=== PATIENT | female | born 1935 | race Hispanic/Latino ===

== ENCOUNTER 2017-08-03 08:01 | Emergency (ER) | payer MEDICARE, OTHER ==
[2017-08-03 08:31] VITALS: BP 114/52; TEMP 97.8; BMI 33.2
--- NOTE | 2017-08-03 08:40 | ED PDOC ---
Arrival/HPI - General Chief Complaint: Female Genitourinary Time Seen by Provider: 08/03/17 08:28 Historian: Patient - History of Present Illness Narrative History of Present Illness (Text): 08/03/17 08:40 81 year old female, with no significant past medical history, presents to the emergency department complaining of vaginal bleed since this morning. Patient denies any fevers, chills, chest pain, shortness of breath, abdominal pain, nausea, vomiting, diarrhea, back pain, neck pain, hematuria, headache, dizziness , or any other complaint. Time/Duration: 4-6 hours Symptom Onset: Sudden Symptom Course: Unchanged Activities at Onset: Light Context: Home Past Medical History - Provider Review Nursing Documentation Reviewed: Yes - Cardiac Hx Cardiac Disorders: Yes Hx Congestive Heart Failure: Yes Hx Hypertension: Yes Hx Pacemaker: Yes - Pulmonary Hx Lung Cancer: Yes - Neurological Hx Neurological Disorder: No - HEENT Hx HEENT Disorder: No - Renal Hx Renal Disorder: No - Endocrine/Metabolic Hx Hypothyroidism: Yes - Hematological/Oncological Hx Blood Transfusions: No Hx Blood Transfusion Reaction: No - Integumentary Hx Dermatological Disorder: No - Musculoskeletal/Rheumatological Hx Arthritis: Yes - Gastrointestinal Hx Gastrointestinal Disorders: No - Genitourinary/Gynecological Hx Reproductive Disorders: No - Psychiatric Hx Depression: No Hx Emotional Abuse: No Hx Physical Abuse: No Hx Substance Use: No - Surgical History Hx Cardiac Catheterization: Yes Hx Joint Replacement: Yes (b/l hip) - Anesthesia Hx Anesthesia Reactions: No Hx Malignant Hyperthermia: No - Suicidal Assessment Feels Threatened In Home Enviroment: No Family/Social History - Physician Review Nursing Documentation Reviewed: Yes Family/Social History: Unknown Family HX Smoking Status: Former Smoker Hx Alcohol Use: No Hx Substance Use: No Hx Substance Use Treatment: No Allergies/Home Meds Allergies/Adverse Reactions: Allergies No Known Allergies Allergy (Verified 08/03/17 08:26) Home Medications: Home Meds Medication Instructions Recorded Confirmed Ascorbic Acid/Vitamin B Comp [B 1 tab PO DAILY 06/08/14 06/13/14 Complex W/C] Celecoxib [celeBREX] 200 mg PO DAILY 06/08/14 06/13/14 Nebivolol HCl [Bystolic] 5 mg PO DAILY 06/08/14 06/13/14 Rosuvastatin Calcium [Crestor] 20 mg PO DAILY 06/08/14 06/13/14 Review of Systems - Review of Systems Constitutional: Normal Eyes: Normal ENT: Normal Respiratory: Normal. absent: SOB, Cough Cardiovascular: Normal. absent: Chest Pain Gastrointestinal: Normal. absent: Abdominal Pain, Diarrhea, Nausea, Vomiting Genitourinary Female: Vaginal Bleeding. absent: Dysuria, Frequency, Hematuria, Urine Output Changes Musculoskeletal: Normal. absent: Back Pain, Neck Pain Skin: Normal. absent: Rash Neurological: Normal. absent: Headache, Dizziness Endocrine: Normal Hemo/Lymphatic: Normal Psychiatric: Normal Physical Exam Vital Signs Reviewed: Yes Vital Signs Temp Pulse Resp BP Pulse Ox 08/03/17 08:28 97.8 F 60 18 114/52 L 97 Temperature: Afebrile Blood Pressure: Normal Pulse: Regular Respiratory Rate: Normal Appearance: Positive for: Well-Appearing, Non-Toxic, Comfortable Pain Distress: None Mental Status: Positive for: Alert and Oriented X 3 - Systems Exam Head: Present: Atraumatic, Normocephalic Pupils: Present: PERRL Extroacular Muscles: Present: EOMI Conjunctiva: Present: Normal Mouth: Present: Moist Mucous Membranes Neck: Present: Normal Range of Motion. No: Meningeal Signs, MIDLINE TENDERNESS , Paraspinal Tenderness Respiratory/Chest: Present: Clear to Auscultation, Good Air Exchange. No: Respiratory Distress, Accessory Muscle Use, Wheezes, Decreased Breath Sounds, Rales Cardiovascular: Present: Regular Rate and Rhythm, Normal S1, S2. No: Murmurs Abdomen: No: Tenderness, Distention, Peritoneal Signs Genitourinary/Pelvic Exam: Present: Vaginal Bleeding Back: Present: Normal Inspection. No: CVA Tenderness, Midline Tenderness, Paraspinal Tenderness Upper Extremity: Present: Normal Inspection. No: Cyanosis, Edema Lower Extremity: Present: Normal Inspection. No: Edema, CALF TENDERNESS Neurological: Present: GCS=15, CN II-XII Intact, Speech Normal Skin: Present: Warm, Dry, Normal Color. No: Rashes Psychiatric: Present: Alert, Oriented x 3, Normal Insight, Normal Concentration Medical Decision Making ED Course and Treatment: 08/03/17 08:51 Impression: 81 year old female presents to the emergency department complaining of vaginal bleeding since this morning. Plan: -- Labs -- US Transvaginal -- Reassess and disposition Progress Notes: 08/03/17 10:22 US Transvaginal reviewed, shows; UTERUS: Measures 8.3 x 4.1 x 3.5 cm. Anterior intramural fibroid 3.0 x 2.7 x 3.0 cm. No other discrete mass. ENDOMETRIUM: Measures 8 mm in diameter. Visualization limited due to the uterine fibroid. Nevertheless, 8 mm endometrium is distinctly abnormal in a postmenopausal woman. Further evaluation advised to exclude endometrial neoplasm. CERVIX: No cervical abnormality identified. RIGHT OVARY: Not visualized LEFT OVARY: Not visualized FREE FLUID: No significant free fluid noted. OTHER FINDINGS: None. IMPRESSION: 3 cm anterior intramural uterine fibroid. Abnormal thickened endometrium. Further evaluation advised to exclude endometrial neoplasm. . 08/03/17 10:35 Spoke to patient and patient's daughter about concern that she has endometrial cancer. She reports that she has a laborer stores, Dr. Lisa [phone] to follow-up with. Called patient's laborer [employer] who is moving today. Left message with answering service. Called patient's PMD Dr. Sabra Herring to make her aware of abnormal u/s. Left message with her office. Gave patient copy of ultrasound report. Patient and patient's daughter report understanding that this could be cancer and she needs further evaluation. No gynecology services available here. Hemodynamically stable and hgb at baseline. - Lab Interpretations Lab Results: 08/03/17 09:26 08/03/17 08:48 Lab Results 08/03/17 09:26: WBC 6.2 D, RBC 3.88, Hgb 10.2 L, Hct 32.2 L, MCV 83.0, MCH 26.3 , MCHC 31.7, RDW 16.0 H, Plt Count 189, MPV 12.0 H, Gran % 73.2 H, Lymph % (Auto ) 15.9 L, Charles % (Auto) 6.2 H, Eos % (Auto) 4.4, Baso % (Auto) 0.3, Gran # 4.50 , Lymph # (Auto) 1.0 L, Charles # (Auto) 0.4, Eos # (Auto) 0.3, Baso # (Auto) 0.02 08/03/17 08:48: Blood Type A POSITIVE, Antibody Screen Negative, BBK History Checked No verified bt 08/03/17 08:48: Sodium 142, Potassium 4.4, Chloride 110 H, Carbon Dioxide 24, Anion Gap 12, BUN 27 H, Creatinine 1.1, Est GFR ( Amer) 58, Est GFR (Non- Af Amer) 48, Random Glucose 104, Calcium 8.4, Total Bilirubin 0.3, AST 26, ALT 37, Alkaline Phosphatase 45, Total Protein 5.5 L, Albumin 3.2, Globulin 2.3, Albumin/Globulin Ratio 1.4 08/03/17 08:48: PT 12.0, INR 1.04, APTT 24.6 L - RAD Interpretation Radiology Orders: 08/03/17 08:38 TRANSVAGINAL [US] Stat - Scribe Statement The provider has reviewed the documentation as recorded by the Scribe Shiloh Garcia All medical record entries made by the Scribe were at my direction and personally dictated by me. I have reviewed the chart and agree that the record accurately reflects my personal performance of the history, physical exam, medical decision making, and the department course for this patient. I have also personally directed, reviewed, and agree with the discharge instructions and disposition. Disposition/Present on Arrival - Present on Arrival Any Indicators Present on Arrival: No History of DVT/PE: No History of Uncontrolled Diabetes: No Urinary Catheter: No History of Decub. Ulcer: No History Surgical Site Infection Following: None - Disposition Have Diagnosis and Disposition been Completed?: Yes Diagnosis: Anemia, Uterine fibroid, Thickened endometrium, Vaginal bleeding Disposition: HOME/ ROUTINE Disposition Time: 10:36 Patient Plan: Discharge Patient Problems: Current Active Problems Problem Status Onset Anemia Acute Uterine fibroid Acute Thickened endometrium Acute Vaginal bleeding Acute Condition: GOOD Additional Instructions: Your ultrasound is concerning for endometrial cancer. You need to follow-up with your [employer] within 2 days for further evaluation. Return to ED if condition worsens. Follow-up with PMD within 2 days Forms: [employer] (Eth[place]ian)
[2017-08-03 09:07] LABS: ALB/GLOB RATIO 1.4 (1.1-1.8); ALBUMIN 3.2 g/dL (3.0-4.8); CALCIUM 8.4 mg/dL (8.4-10.5)
[2017-08-03 09:16] LABS: INR 1.04 (0.93-1.08); PARTIAL THROMBOPLASTIN TIME 24.6 Seconds (25.1-36.5)
[2017-08-03 09:36] LABS: BASO # 0.02 K/mm3 (0.0-2.0); BASO % 0.3 % (0.0-3.0); EOS # 0.3 (0.0-0.7); EOS % 4.4 % (1.5-5.0); GRAN # 4.5 (1.4-6.5); GRAN % 73.2 % (50.0-68.0); HEMOGLOBIN 10.2 g/dL (12.0-16.0); LYMPH % 15.9 % (22.0-35.0); MEAN CORPUSCULAR HEMOGLOBIN 26.3 pg (25.0-35.0); MEAN CORPUSCULAR HGB CONC 31.7 g/dl (31.0-37.0); MONO # 0.4 (0.1-0.6); MONO % 6.2 % (1.0-6.0); RBC 3.88 10^6/uL (3.5-6.1); WHITE BLOOD COUNT 6.2 10^3/ul (4.5-11.0)
--- NOTE | 2017-08-03 10:17 | US ---
HISTORY: vaginal bleeding COMPARISON: None available. TECHNIQUE: Transabdominal and transvaginal FINDINGS: UTERUS: Measures 8.3 x 4.1 x 3.5 cm. Anterior intramural fibroid 3.0 x 2.7 x 3.0 cm. No other discrete mass. ENDOMETRIUM: Measures 8 mm in diameter. Visualization limited due to the uterine fibroid. Nevertheless, 8 mm endometrium is distinctly abnormal in a postmenopausal woman. Further evaluation advised to exclude endometrial neoplasm. CERVIX: No cervical abnormality identified. RIGHT OVARY: Not visualized LEFT OVARY: Not visualized FREE FLUID: No significant free fluid noted. OTHER FINDINGS: None. IMPRESSION: 3 cm anterior intramural uterine fibroid. Abnormal thickened endometrium. Further evaluation advised to exclude endometrial neoplasm. .
[2017-08-03 11:24] VITALS: PULSE 67
[2017-08-03 11:28] VITALS: RESP 18; O2SAT 98
== END 2017-08-03 11:28 | disposition home or self-care (01) ==
LOC: ED 08:01
DX: D25.1 Intramural leiomyoma of uterus (principal); D64.9 Anemia, unspecified; N93.9 Abnormal uterine and vaginal bleeding, unspecified; R93.8 Abnormal findings on diagnostic imaging of other specified body structures; Z87.891 Personal history of nicotine dependence; I10 Essential (primary) hypertension; I50.9 Heart failure, unspecified; E03.9 Hypothyroidism, unspecified

== ENCOUNTER 2017-11-06 09:35 | Inpatient (IN) | payer MEDICARE, OTHER ==
[2017-11-06 09:37] VITALS: BMI 33.0
--- NOTE | 2017-11-06 09:58 | ED PDOC ---
Arrival/HPI - General Historian: Patient <Geovanni Bronson A - Last Filed: 11/06/17 18:05> <Kris Garcia - Last Filed: 11/08/17 11:38> - General Chief Complaint: Shortness Of Breath Time Seen by Provider: 11/06/17 09:39 - History of Present Illness Narrative History of Present Illness (Text): 11/06/17 09:49 82yo female with pmhx of hypertension, hypothyroid, CAD s/p stents and pacemaker bib the EMS for 2days history of subjective fever, malaise, SOB. Denies cough, chest pain, nausea, vomiting, abdominal pain, sick contact, travel. The daughter states patient lives by herself and told her of the symptoms today. Patient did not take any medication for the pain. (Geovanni Bronson A) Past Medical History - Provider Review Nursing Documentation Reviewed: Yes - Reproductive Menopause: Yes - Cardiac Hx Cardiac Disorders: Yes Hx Congestive Heart Failure: Yes Hx Hypertension: Yes Hx Pacemaker: Yes - Pulmonary Hx Lung Cancer: Yes - Neurological Hx Neurological Disorder: No - HEENT Hx HEENT Disorder: No - Renal Hx Renal Disorder: No - Endocrine/Metabolic Hx Hypothyroidism: Yes - Hematological/Oncological Hx Blood Transfusions: No Hx Blood Transfusion Reaction: No - Integumentary Hx Dermatological Disorder: No - Musculoskeletal/Rheumatological Hx Arthritis: Yes - Gastrointestinal Hx Gastrointestinal Disorders: No - Genitourinary/Gynecological Hx Reproductive Disorders: No - Psychiatric Hx Depression: No Hx Emotional Abuse: No Hx Physical Abuse: No Hx Substance Use: No - Surgical History Hx Cardiac Catheterization: Yes Hx Joint Replacement: Yes (b/l hip) - Anesthesia Hx Anesthesia Reactions: No Hx Malignant Hyperthermia: No - Suicidal Assessment Feels Threatened In Home Enviroment: No <Geovanni Bronson A - Last Filed: 11/06/17 18:05> Family/Social History - Physician Review Nursing Documentation Reviewed: Yes Family/Social History: Unknown Family HX Smoking Status: Former Smoker Hx Alcohol Use: No Hx Substance Use: No Hx Substance Use Treatment: No <Geovanni Bronson A - Last Filed: 11/06/17 18:05> Allergies/Home Meds <Geovanni Bronson A - Last Filed: 11/06/17 18:05> <Kris Garcia - Last Filed: 11/08/17 11:38> Allergies/Adverse Reactions: Allergies No Known Allergies Allergy (Verified 11/06/17 09:38) Home Medications: Home Meds Medication Instructions Recorded Confirmed Nebivolol HCl [Bystolic] 5 mg PO DAILY 06/08/14 11/06/17 Rosuvastatin Calcium [Crestor] 20 mg PO DAILY 06/08/14 11/06/17 ALPRAZolam [Xanax] 0.25 mg PO BID PRN 11/06/17 11/06/17 Amiodarone [Cordarone] 100 mg PO 0800 11/06/17 11/06/17 Clonidine HCl [Catapres] 0.1 mg PO EDWARDO PRN 11/06/17 11/06/17 Clopidogrel [Plavix] 75 mg PO DAILY 11/06/17 11/06/17 Levothyroxine [Synthroid] 44 mcg PO 0630 11/06/17 11/06/17 Olmesartan/Amlodipin/Hcthiazid 1 tab PO DAILY 11/06/17 11/06/17 [Tribenzor 40-10-25 mg Tablet] Review of Systems - Physician Review All systems were reviewed & negative as marked: Yes - Review of Systems Constitutional: Fatigue, Fevers Eyes: Normal ENT: Normal Respiratory: SOB. absent: Cough Cardiovascular: Normal Gastrointestinal: Normal Genitourinary Female: Normal Musculoskeletal: Normal Skin: Normal Neurological: Normal Endocrine: Normal Hemo/Lymphatic: Normal Psychiatric: Normal <Diru,Happiness A - Last Filed: 11/06/17 18:05> Physical Exam Vital Signs Reviewed: Yes Temperature: Febrile Blood Pressure: Normal Pulse: Regular Respiratory Rate: Normal Appearance: Positive for: Well-Appearing, Non-Toxic, Comfortable Pain Distress: None Mental Status: Positive for: Alert and Oriented X 3 - Systems Exam Head: Present: Atraumatic, Normocephalic Pupils: Present: PERRL Extroacular Muscles: Present: EOMI Conjunctiva: Present: Normal Mouth: Present: Moist Mucous Membranes Neck: Present: Normal Range of Motion Respiratory/Chest: Present: Clear to Auscultation, Good Air Exchange, Decreased Breath Sounds (RUL). No: Respiratory Distress, Accessory Muscle Use, Wheezes, Rales, Retracting, Rhonchi Cardiovascular: Present: Regular Rate and Rhythm, Normal S1, S2. No: Murmurs Abdomen: No: Tenderness, Distention, Peritoneal Signs Back: Present: Normal Inspection Upper Extremity: Present: Normal Inspection. No: Cyanosis, Edema Lower Extremity: Present: Normal Inspection. No: Edema Neurological: Present: GCS=15, CN II-XII Intact, Speech Normal Skin: Present: Warm, Dry, Normal Color. No: Rashes Psychiatric: Present: Alert, Oriented x 3, Normal Insight, Normal Concentration <AiyanaGeovanni A - Last Filed: 11/06/17 18:05> Vital Signs Temp Pulse Resp BP Pulse Ox 11/06/17 13:15 100 F H 67 19 100/52 L 95 11/06/17 12:51 100 F H 67 19 101/68 97 11/06/17 12:26 75 19 99/53 L 97 11/06/17 11:07 65 19 98/57 L 97 11/06/17 10:55 100 F H 11/06/17 10:45 101.1 F H 65 19 108/65 98 11/06/17 09:55 102.9 F H 11/06/17 09:54 102.9 F H 79 19 130/75 98 11/06/17 09:52 102.9 F H Medical Decision Making <Geovanni Bronson A - Last Filed: 11/06/17 18:05> <Kris Garcia - Last Filed: 11/08/17 11:38> ED Course and Treatment: 11/06/17 18:06 82yo female bib for fever and SOB x2days. Pt was febrile on arrival. Her fever improved in emergency department with antipyretics. She was not hypoxic on 3L of NC. Her BP dropped slightly while she was in emergency department , but she was not hypotensive. Lab was reviewed with elevated BNP noted. Lasix was however not ordered secondary to pt's BP Chest X-Ray Right upper lobe consolidation EKG NSR @72 Blood culture is pending Pt with CAP, Rocephin and Zithromax was given Case was VISH Sanz while she was in emergency department , she saw pt by the bedside and accepted pt to her service. Result and plan was DW the pt and she agreed (Geovanni Bronson A) - Lab Interpretations Microbiology Results: Microbiology Results 11/06/17 09:57 Blood Blood Culture - Preliminary NO GROWTH AFTER 48 HOURS 11/06/17 09:57 Blood Blood Culture - Preliminary NO GROWTH AFTER 48 HOURS 11/06/17 11:00 Urine Urine Culture - Final No Growth (<1,000 CFU/ML) Lab Results: 11/06/17 09:57 11/06/17 09:57 Lab Results 11/06/17 11:00: Urine Color Yellow, Urine Appearance Clear, Urine pH 6.0, Ur Specific [place] 1.020, Urine Protein Trace H, Urine Glucose (UA) Negative, Urine Ketones Negative, Urine Blood Negative, Urine Nitrate Negative, Urine Bilirubin Negative, Urine Urobilinogen 0.2, Ur Leukocyte Esterase Negative, Urine RBC 0 - 2, Urine WBC 1 - 3, Ur Epithelial Cells 4 - 5, Urine Bacteria Mod 11/06/17 09:57: Sodium 140, Chloride 104, Potassium 3.8, Carbon Dioxide 22, Anion Gap 18, BUN 20, Creatinine 1.0, Est GFR ( Amer) > 60, Est GFR (Non- Af Amer) 53, Random Glucose 148 H, Calcium 9.0, Phosphorus 2.6, Magnesium 1.7, Total Bilirubin 0.4, AST 25, ALT 24, Alkaline Phosphatase 58, Troponin I 0.01 D , NT-Pro-B Natriuret Pep 1670 H, Total Protein 6.6, Albumin 4.0, Globulin 2.7, Albumin/Globulin Ratio 1.5 11/06/17 09:57: pO2 63 H, VBG pH 7.47 H, VBG pCO2 34.0 L, VBG HCO3 24.7, VBG Total CO2 25.7, VBG O2 Sat (Calc) 93.7 H, VBG Base Excess 1.5, VBG Potassium 3.7 , Sodium 139.0, Chloride 105.0, Glucose 155 H, Lactate 2.5 H, FiO2 21.0, Venous Blood Potassium 3.7 11/06/17 09:57: PT 13.1 H, INR 1.14, APTT 25.3 11/06/17 09:57: WBC 9.4 D, RBC 4.25, Hgb 11.2 L, Hct 34.4 L, MCV 80.9, MCH 26.4 , MCHC 32.6, RDW 14.8 H, Plt Count 166, MPV 12.1 H, Gran % 85.9 H, Lymph % (Auto ) 6.6 L, [place] % (Auto) 7.2 H, Eos % (Auto) 0.1 L, Baso % (Auto) 0.2, Gran # 8.06 H, Lymph # (Auto) 0.6 L, [place] # (Auto) 0.7 H, Eos # (Auto) 0.0, Baso # ( Auto) 0.02 - RAD Interpretation Radiology Orders: 11/06/17 09:47 CHEST PORTABLE [RAD] Stat - Medication Orders Current Medication Orders: Acetaminophen (Tylenol 325mg Tab) 975 mg PO ONCE PRN PRN Reason: Fever >100.4 F Last Admin: 11/06/17 09:55 Dose: 975 mg MAR Pain/Vitals Document 11/06/17 09:55 GMI (Rec: 11/06/17 09:55 GMI [id number]) Pain Reassessment Is This A Pain ReAssessment? No Vitals Temperature (97.6 F-99.6 F) 102.9 F Temperature Source Rectal Re-Assess: MIGUE Pain/Vitals Document 11/06/17 10:55 GMI (Rec: 11/06/17 11:32 GMI [id number]) Vitals Temperature (97.6 F-99.6 F) 100 F Temperature Source Oral Albuterol/Ipratropium (Duoneb 3 Mg/0.5 Mg (3 Ml) Ud) 3 ml IH [id number] [facility] Last Admin: 11/08/17 07:34 Dose: 3 ml Albuterol/Ipratropium (Duoneb 3 Mg/0.5 Mg (3 Ml) Ud) 3 ml IH Q2H PRN PRN Reason: Shortness of Breath Alprazolam (Xanax) 0.25 mg PO BID PRN; Protocol PRN Reason: Anxiety Stop: 11/13/17 15:02 Last Admin: 11/07/17 23:40 Dose: 0.25 mg Behavioural Document 11/07/17 23:40 [facility] (Rec: 11/07/17 23:42 [facility] [id number]) Behavior Behavior for Medication: Anxiety Re-Assess: Reassess Psych Meds Document 11/08/17 00:40 [facility] (Rec: 11/08/17 05:05 [id number] Reassess Psych Med Effective Amiodarone HCl (Cordarone) 100 mg PO 0800 [facility] Last Admin: 11/08/17 10:42 Dose: 100 mg Aspirin (Aspirin Chewable) 81 mg PO DAILY [facility] Last Admin: 11/08/17 10:43 Dose: 81 mg Atorvastatin Calcium (Lipitor) 80 mg PO DIN [facility] Last Admin: 11/07/17 17:05 Dose: Not Given Non-Admin Reason: Patient Refused Clonidine HCl (Catapres) 0.1 mg PO BID PRN PRN Reason: HTN Clopidogrel Bisulfate (Plavix) 75 mg PO 1800 [facility] Last Admin: 11/07/17 17:05 Dose: 75 mg Ceftriaxone Sodium (Rocephin 1 Gram Ivpb) 1 gm in 100 mls @ 100 mls/hr IVPB DAILY YULIA PRN Reason: Protocol Last Admin: 11/08/17 10:43 Dose: 100 mls/hr eMAR Start Stop Document 11/08/17 10:43 BON (Rec: 11/08/17 10:43 BON [id number]) Intravenous Solution Start Date 11/08/17 Start Time 10:43 Azithromycin (Zithromax 500mg In Ns) 500 mg in 250 mls @ 167 mls/hr IVPB DAILY YULIA PRN Reason: Protocol Last Admin: 11/08/17 10:43 Dose: 167 mls/hr eMAR Start Stop Document 11/08/17 10:43 BON (Rec: 11/08/17 10:43 BON [id number]) Intravenous Solution Start Date 11/08/17 Start Time 10:43 Levothyroxine Sodium (Synthroid) 44 mcg PO 0630 [facility] Last Admin: 11/08/17 06:16 Dose: 44 mcg Losartan Potassium (Cozaar) 50 mg PO DAILY [facility] Last Admin: 11/08/17 10:42 Dose: 50 mg Non-Formulary Medication (Nebivolol Hcl [Bystolic]) 5 mg PO DAILY [facility] Last Admin: 11/08/17 10:42 Dose: 5 mg Ondansetron HCl (Zofran Inj) 4 mg IVP Q6H PRN PRN Reason: Nausea/Vomiting Discontinued Medications Clopidogrel Bisulfate (Plavix) 75 mg PO DAILY [facility] Last Admin: 11/07/17 15:07 Dose: Ceftriaxone Sodium (Rocephin 1 Gram Ivpb) 1 gm in 100 mls @ 200 mls/hr IVPB STAT STA PRN Reason: Protocol Stop: 11/06/17 11:21 Last Admin: 11/06/17 11:09 Dose: 200 mls/hr eMAR Start Stop Document 11/06/17 11:09 GMI (Rec: 11/06/17 11:10 GMI [id number]) Intravenous Solution Start Date 11/06/17 Start Time 11:09 End Date 11/06/17 End time 11:45 Total Infusion Time 36 Azithromycin (Zithromax 500mg In Ns) 500 mg in 250 mls @ 167 mls/hr IVPB STAT STA PRN Reason: Protocol Stop: 11/06/17 12:22 Last Admin: 11/06/17 11:53 Dose: 167 mls/hr eMAR Start Stop Document 11/06/17 11:53 GMI (Rec: 11/06/17 11:53 GMI [id number]) Intravenous Solution Start Date 11/06/17 Start Time 11:53 Levothyroxine Sodium (Synthroid) 44 mcg PO 0630 [facility] Non-Formulary Medication (Rosuvastatin Calcium [Crestor]) 20 mg PO DAILY YULIA Non-Formulary Medication (Nebivolol Hcl [Bystolic]) 5 mg PO DAILY YULIA - PA / [employer] DES[employer] FACILITIES / Resident Statement / has reviewed & agrees with the documentation as recorded. <Kris Garcia - Last Filed: 11/08/17 11:38> Disposition/Present on Arrival - Present on Arrival Any Indicators Present on Arrival: No History of DVT/PE: No History of Uncontrolled Diabetes: No Urinary Catheter: No History of Decub. Ulcer: No History Surgical Site Infection Following: None - Disposition Have Diagnosis and Disposition been Completed?: Yes Disposition Time: 12:00 Patient Plan: Admission <Geovanni Bronson - Last Filed: 11/06/17 18:05> <Kris Garcia - Last Filed: 11/08/17 11:38> - Disposition Diagnosis: Pneumonia, Congestive heart failure, Fever Disposition: HOSPITALIZED Patient Problems: Current Active Problems Problem Status Onset Fever Acute Congestive heart failure Acute Pneumonia Acute Condition: FAIR
[2017-11-06 10:25] LABS: VENOUS BLOOD GAS BASE EXCESS 1.5 mmol/L (0.0-2.0); VENOUS BLOOD GAS PO2 63 mm/Hg (30-55); VENOUS BLOOD PH 7.47 (7.32-7.43)
[2017-11-06 10:26] LABS: BASO # 0.02 K/mm3 (0.0-2.0); BASO % 0.2 % (0.0-3.0); EOS % 0.1 % (1.5-5.0); GRAN # 8.06 (1.4-6.5); GRAN % 85.9 % (50.0-68.0); HEMOGLOBIN 11.2 g/dL (12.0-16.0); LYMPH # 0.6 (1.2-3.4); LYMPH % 6.6 % (22.0-35.0); MEAN CELL VOLUME 80.9 fl (80.0-105.0); MEAN CORPUSCULAR HEMOGLOBIN 26.4 pg (25.0-35.0); MEAN CORPUSCULAR HGB CONC 32.6 g/dl (31.0-37.0); MEAN PLATELET VOLUME 12.1 fl (7.0-11.0); MONO # 0.7 (0.1-0.6); MONO % 7.2 % (1.0-6.0); RBC 4.25 10^6/uL (3.5-6.1); RED CELL DISTRIBUTION WIDTH 14.8 % (11.5-14.5); WHITE BLOOD COUNT 9.4 10^3/ul (4.5-11.0)
[2017-11-06 10:36] LABS: INR 1.14; PARTIAL THROMBOPLASTIN TIME 25.3 Seconds (25.1-36.5); PROTHROMBIN TIME 13.1 SECONDS (9.4-12.5)
[2017-11-06 10:40] LABS: ALB/GLOB RATIO 1.5 (1.1-1.8); ALT/SGPT 24 U/L (7-56); AST/SGOT 25 U/L (14-36); BLOOD UREA NITROGEN 20 mg/dL (7-21); GFR NON-AFRICAN AMERICAN 53
[2017-11-06 10:51] LABS: B-TYPE NATRIURETIC PEPTIDE 1670 pg/mL (0-450); TROPONIN I 0.01 ng/mL
[2017-11-06] MEDS ORDERED: cefTRIAXone 1 gm 1 GM/100 ML BAG IVPB STA (10:52)
[2017-11-06] MEDS ORDERED: Azithromycin 500MG/NS 250ml 500 MG/250 ML BAG IVPB STA (10:53)
[2017-11-06 11:37] LABS: URINE BILIRUBIN NEGATIVE (NEGATIVE); URINE BLOOD NEGATIVE (NEGATIVE); URINE GLUCOSE (UA) NEGATIVE (NEGATIVE); URINE LEUKOCYTE ESTERASE NEGATIVE Leu/uL (NEGATIVE); URINE PROTEIN TRACE mg/dL (<30 mg/dL); URINE UROBILINOGEN 0.2 E.U./dL (<1 E.U./dL)
[2017-11-06 11:41] LABS: URINE APPEARANCE CLEAR (CLEAR); URINE COLOR YELLOW (YELLOW)
--- NOTE | 2017-11-06 11:42 | RAD ---
HISTORY: Sepsis Patient COMPARISON: Chest x-ray performed 06/12/14 TECHNIQUE: Chest, one view. FINDINGS: The patient's chin obscures evaluation of the lung apices. LUNGS: Right upper lobe consolidation. Moderate venous congestion. Please note that chest x-ray has limited sensitivity for the detection of pulmonary masses. PLEURA: No significant pleural effusion identified. No definite pneumothorax . CARDIOVASCULAR: Heart size appears borderline enlarged. Dual lead right-sided pacemaker. OSSEOUS STRUCTURES: Degenerative changes. VISUALIZED UPPER ABDOMEN: Unremarkable. OTHER FINDINGS: None. IMPRESSION: Right upper lobe consolidation may reflect edema or pneumonia ; correlate clinically. Moderate venous congestion.
[2017-11-06 11:53] LABS: URINE RBC 0 - 2 /hpf (0-2)
[2017-11-06 11:54] LABS: URINE BACTERIA MOD (NEG)
[2017-11-06] MEDS ORDERED: Albuterol-Ipratrop 3 mg / 0.5 (3 ml) UD IH PRN (15:03)
[2017-11-06] MEDS: Albuterol-Ipratrop 3 mg / 0.5 (3 ml) UD IH SCH (19:34)
[2017-11-07] MEDS: Albuterol-Ipratrop 3 mg / 0.5 (3 ml) UD IH SCH ×4 (01:51→19:43)
--- NOTE | 2017-11-07 05:11 | CARD ---
APPROVED REPORT Date of service: 11/06/2017 EKG Measurement Heart [id number] <Conclusion> Normal sinus rhythm Normal ECG
[2017-11-07] MEDS: Levothyroxine 88 MCG TAB PO SCH (05:49)
[2017-11-07] MEDS ORDERED: Levothyroxine 25 MCG TAB PO SCH (06:30)
[2017-11-07] MEDS: cefTRIAXone 1 gm 1 GM/100 ML BAG IVPB SCH (09:02)
[2017-11-07] MEDS: Azithromycin 500MG/NS 250ml 500 MG/250 ML BAG IVPB SCH (09:03)
--- NOTE | 2017-11-07 09:56 | CT ---
Date of Service: 11/06/17 CT chest without IV contrast Indication: Shortness of breath/mass Technique: Contiguous axial images were obtained through the chest without intravenous contrast enhancement. Sagittal and coronal reconstructions were generated and reviewed. This CT exam was performed using 1 or more of the following dose reduction techniques: Automated exposure control, adjustment of the MAA and/or kV according to patient size, and/or use of iterative reconstruction technique. Radiation dose (DLP): 725.19 MGy-cm. Comparison: Chest x-ray performed 11/06/17 Findings: Visualized portions of the inferior thyroid gland appear unremarkable. The unenhanced mediastinal and hilar vascular structures appear unremarkable. Cardiomegaly. Right-sided pacemaker. Diffuse right upper lobe airspace consolidation containing air bronchograms, right perihilar region. Consolidation involving the right upper lobe. Nodular and peripheral opacities scattered within the right lower and left mid lung zones. Small bilateral pleural effusions. No pneumothorax. Mediastinal adenopathy measuring up to 2.2 cm (pretracheal, prevascular, subcarinal, right hilar). Please note that evaluation for adenopathy is limited in the absence of IV contrast. Abnormal right supraclavicular lymph nodes are also evident. Limited visualization of the noncontrast upper abdomen appears grossly unremarkable. Degenerative changes of the spine. Impression: Diffuse right upper lobe airspace consolidation containing air bronchograms, right perihilar region. Consolidation involving the right upper lobe. Nodular and peripheral opacities scattered within the right lower and left mid lung zones. Small bilateral pleural effusions. Right supraclavicular and mediastinal adenopathy. While consolidations may reflect pneumonia, presence of right supraclavicular adenopathy raises concern for possibility of malignant neoplasm. Correlate clinically. At minimum short-term follow-up is recommended to ensure complete resolution. Alternatives including biopsy may be considered if appropriate. Preliminary impression was provided by virtual radiologic.
--- NOTE | 2017-11-07 19:40 | PN ---
Copied To: Josephine Sanz MD Attending MD: Josephine Sanz MD DATE: 11/07/2017 SUBJECTIVE: The patient is 82 years old, seen and examined. Complains of shortness of breath and cough. No nausea or vomiting. PHYSICAL EXAMINATION: VITAL SIGNS: She is afebrile, pulse 67, respirations 18, blood pressure 112/58. LUNGS: Bilateral fair airflow. No rhonchi or crackle. HEART: S1 and S2 audible. ABDOMEN: Soft, nontender. No rebound. No guarding. NEUROLOGICAL: The patient is awake, alert, oriented and communicative. LABORATORY DATA: Had CT scan of the chest done that shows diffused right upper lobe airspace consolidation containing air bronchogram, right perihilar consolidation involving right upper lobe nodular and peripheral opacities scattered within the right lower and left mid lung zone, small bilateral pleural effusion, right supraclavicular and mediastinal adenopathy. ASSESSMENT: 1. Right upper lung consolidation with history of neoplasm. 2. Mediastinal lymphadenopathy. 3. Chronic obstructive pulmonary disease. 4. History of pacemaker placement. 5. History of right carotid anastomosis with right facial weakness. PLAN: We will continue the patient on aspirin, amiodarone and losartan. She is getting IV antibiotics. We will follow up this patient in a.m. Josephine Sanz MD
--- NOTE | 2017-11-07 23:05 | HP ---
Copied To: Josephine Sanz MD Attending MD: Josephine Sanz MD HISTORY OF PRESENT ILLNESS: The patient is 82 years old who was brought to emergency room because of not feeling well, had fever last night with chills, cough, congestion, chest pain on coughing. No history of nausea or vomiting. No diarrhea. No recent travel abroad. PAST MEDICAL HISTORY: Significant for: 1. Hypertension. 2. Hyperlipidemia. 3. Hypothyroidism. 4. History of AFib. 5. History of carotid endarterectomy, at that point she was left with some residual weakness of her right face. 6. History of CA lung. 7. History of pacemaker placement. 8. Generalized osteoarthritis. 9. History of bilateral hip replacement. ALLERGIES: SHE IS NOT ALLERGIC TO ANY MEDICATION. MEDICATIONS AT HOME: She is on Crestor 20 mg daily, Bystolic 5 mg daily, aspirin 81 daily, Plavix 75 daily, amiodarone 100 mg daily, Xanax 0.25 twice a day, levothyroxine 44 mcg daily, clonidine 0.1 b.i.d. and olmesartan. SOCIAL HISTORY: She used to be a smoker in the past, but quit few years ago, . PHYSICAL EXAMINATION GENERAL: On admission, she is awake and alert, was hypertensive currently on IV fluid when I saw her in the emergency room. VITAL SIGNS: She has temperature of 100, pulse 64, respirations 17, blood pressure . LUNGS: Bilateral soft crackle at bases. HEART: S1 and S2 audible. ABDOMEN: Soft, obese, nontender. No rebound. No guarding. NEUROLOGICAL: She has right facial weakness. Otherwise neurologically, she is awake, alert, oriented, communicative, moves all extremities. LABORATORY EXAM: WBC 9.4, hemoglobin 11.2, hematocrit 34, platelets 156,000. PT 13.1, INR 1.14. Chemistry: Sodium 140, potassium 3.8, chloride 104, CO2 22, BUN 20, creatinine 1. Blood sugar 148. BNP 1670. Urinalysis is negative. She has x-ray of chest done that shows right upper lobe consolidation, edema versus pneumonia, moderate venous congestion. PLAN: The patient will be admitted. We will start her on IV antibiotics, nebulizer treatment. I will order CT scan of the chest to differentiate between mass and pneumonia versus edema. We will follow up CBC and CMP in the a.m. Josephine Sanz MD
--- NOTE | 2017-11-08 01:49 | CON ---
Copied To: Federica Saldana MD Attending MD: Federica Saldana MD DATE: 11/07/2017 PULMONARY CONSULT REFERRING PHYSICIAN: Josephine Sanz MD. REASON FOR CONSULT: Pulmonary infiltrate, chronic lung disease, has a lymphoma. HISTORY OF PRESENT ILLNESS: This is an 82-year-old female with known history of hypertension, hypothyroid, coronary artery disease, history of coronary stent, cardiac pacemaker, chronic lung disease, history of lymphoma, had a chronic pulmonary infiltrate. Last admission at [facility], she refused to do lung biopsy. According to the patient and her daughter who I spoke to on the telephone, she has been followed at [facility] with a space control supervisor and oncologist, had a biopsy done, which was nondiagnostic. Family believes she does not have a cancer, but she had been watched for lymphoma by the oncologist. Comes in with shortness of breath and chest pain. Not feeling well. No hemoptysis. No hematemesis, hematuria. No diarrhea reported. PAST MEDICAL HISTORY: Hypertension, hypothyroid, coronary artery disease, coronary stent, has a cardiac pacemaker, diagnosed with lymphoma, chronic pulmonary infiltrate, also with degenerative joint disease, hip replacement. ALLERGIES: NONE KNOWN. SOCIAL HISTORY: Former smoker. Denies any alcohol use. FAMILY HISTORY: No significant cardiopulmonary disease reported. MEDICATIONS: She is on aspirin 81 mg daily, clonidine 0.1 mg twice a day p.r.n., amiodarone 100 mg daily, Cozaar 50 mg daily, DuoNeb every 2 hours and every 6 hours [id number], Lipitor 80 mg daily, Bystolic 5 mg daily, Prevacid 5 mg daily, Rocephin 1 g IV daily, Synthroid mcg daily, Tylenol p.r.n., Xanax 0.25 mg twice a day p.r.n., Zithromax 500 mg daily, Zofran 4 mg every 6 hours p.r.n. REVIEW OF SYSTEMS: No headache. No rhinitis. Has some cough, shortness of breath. No chest pain. No abdominal pain. No dysuria. No leg pain or leg swelling. PHYSICAL EXAMINATION: GENERAL: No acute distress. VITAL SIGNS: Temp is 99, heart rate is 91, respiratory rate is 18, blood pressure 134/76, pulse ox 95% on 2 L nasal cannula. HEENT: Moist mucous membrane. Crowded airway. Mallampati score is 4. NECK: Supple. No JVD. LUNGS: Have a scattered rhonchi, prolonged expiratory phase. HEART: S1 and S2. ABDOMEN: Soft, nontender, no organomegaly. EXTREMITIES: No edema. NEUROLOGICAL: Awake, alert. Follows simple command. LABORATORY DATA: Shows hemoglobin 11.2, hematocrit 34.4, WBC 9.4, platelet is 166. INR 1.14, PTT 25. VBG showed pH 7.47, pCO2 is 34, O2 63 that is on room air. Sodium 140, potassium 3.8, chloride 104, bicarbonate is 22, BUN 20, creatinine 1, glucose is 148, calcium 9, phosphorus 2.6, magnesium 1.7, total bili 0.4, AST 25, ALT 34, alk phos is 54, albumin is 4. ProBNP is 1670. Troponin 0.01. Urinalysis is unremarkable. Microbiology: Blood culture, urine culture, there is no growth. Has a CT scan of the chest done in the emergency room and shows diffuse right upper lobe airspace consolidation containing bronchogram, right hilar region. Also has infiltrate, consolidation involving the right upper lobe, nodular and peripheral opacity scattered within the right lung and left mid lung zone, small bilateral pleural effusion, right supraclavicular and mediastinal adenopathy. IMPRESSION AND PLAN: Chronic obstructive lung disease, right lung mass with adenopathy suspicious for cancer, hypothyroid, obesity, may have a sleep apnea syndrome, also diagnosed lymphoma. According to the patient and the daughter, had a biopsy done at [facility], which was showing no lung cancer. I expressed my feeling to the family, we can treat with the antibiotics. Need followup x-ray. If persistent infiltrate, she should go for repeat biopsy. She will follow up with her primary space control supervisor at [facility] and oncologist there. Continue gastric prophylaxis, deep venous thrombosis prophylaxis. Thank you and we will follow with you. Federica Saldana MD
[2017-11-08] MEDS: Albuterol-Ipratrop 3 mg / 0.5 (3 ml) UD IH SCH ×4 (02:30→20:06)
[2017-11-08] MEDS: Levothyroxine 88 MCG TAB PO SCH (06:16)
[2017-11-08] MEDS ORDERED: NEBIVOLOL HCL 5 MG PO SCH ×2 (10:00)
[2017-11-08] MEDS: Azithromycin 500MG/NS 250ml 500 MG/250 ML BAG IVPB SCH (10:43)
[2017-11-08] MEDS: cefTRIAXone 1 gm 1 GM/100 ML BAG IVPB SCH (10:43)
--- NOTE | 2017-11-08 17:40 | PN ---
Copied To: Josephine Sanz MD Attending MD: Josephine Sanz MD DATE: 11/08/2017 SUBJECTIVE: The patient is 82 years old, seen and examined, sitting in chair, complains of not feeling well, complains of having generalized weakness. PHYSICAL EXAMINATION: VITAL SIGNS: The patient is afebrile, pulse 72, respirations 18, blood pressure 91/47. LUNGS: Have soft crackles in the mid lung region, more pronounced on the right mid lung region posteriorly. HEART: S1 and S2 audible. ABDOMEN: Soft, nontender. No rebound. No guarding. Obese. No hepatosplenomegaly. NEUROLOGICAL: The patient is awake, alert, oriented, able to communicate. LABORATORY DATA: Blood cultures and urine cultures are negative. CT of the chest shows diffuse right upper lobe airspace consolidation with air bronchogram and right perihilar lymphadenopathy, nodular and peripheral opacities scattered within the right lower and left mid lung zone. I had a discussion with the patient's daughter, Bethany, and she states she had biopsy done twice in [facility] and was told it is noncancerous. She had PET scan done in [facility] also, does not know the results; however, I will reach out to patient's primary care physician. So, for now, plan to give her nebulizer treatment, IV antibiotics. I will continue her on amiodarone. I will request for ID evaluation. Encourage ambulation. We will follow up in a.m. Josephine Sanz MD
[2017-11-08] MEDS: Cefepime 1gm in NS 100ml 1 GM/100 ML BAG IVPB SCH (21:20)
--- NOTE | 2017-11-09 | PN ---
Copied To: Federica Saldana MD Attending MD: Federica Saldana MD DATE: 11/08/2017 PULMONARY PROGRESS NOTE REFERRING PHYSICIAN: Elvira Keene MD SUBJECTIVE: She is out of bed to chair. Night was unremarkable. Has low-grade fever. Mild cough and shortness of breath. No chest pain. No nausea. No vomiting. No diarrhea. No leg pain or leg swelling. PHYSICAL EXAMINATION: GENERAL: In no acute distress. VITAL SIGNS: T-max 100.6, temperature is 99.8, heart rate is 72, respiratory rate is 18, blood pressure 97/57, pulse ox of 94% on 2 liter nasal cannula. HEENT: Moist mucous membrane. Crowded airway. Mallampati score is 4. NECK: Supple. No JVD. LUNGS: Has right lung crackles and rhonchi. HEART: S1 and S2. ABDOMEN: Soft, nontender. No organomegaly. EXTREMITIES: No edema. NEUROLOGICAL: Awake and alert. Follows simple command. LABORATORY DATA: Reviewed. No new lab is available since yesterday. Microbiology, blood culture, urine culture, there is no growth. IMPRESSION AND PLAN: Chronic obstructive lung disease; right lung mass with infiltrate, there is also left lung infiltrate, which present since [address]; also hypothyroid; obesity; may have sleep apnea syndrome; has a lymphoma; has a low-grade fever. We will continue antibiotics. We will repeat procalcitonin and proBNP tomorrow. We will get cortisol level in the morning. Change nystatin to hold for systolic blood pressure less than 100. Need follow-up CT to assure the stability of infiltrates. Should follow up with her oncologist and information technology technician upon discharge as outpatient. Thank you and we will follow with you. Federica Saldana MD
[2017-11-09] MEDS: Albuterol-Ipratrop 3 mg / 0.5 (3 ml) UD IH SCH ×2 (01:55→07:34)
[2017-11-09] MEDS: Levothyroxine 88 MCG TAB PO SCH (06:17)
[2017-11-09] MEDS: Cefepime 1gm in NS 100ml 1 GM/100 ML BAG IVPB SCH (06:19)
[2017-11-09 07:10] LABS: HEMOGLOBIN 8.7 g/dL (12.0-16.0); MEAN CELL VOLUME 81.6 fl (80.0-105.0); MEAN CORPUSCULAR HEMOGLOBIN 26.2 pg (25.0-35.0); MEAN CORPUSCULAR HGB CONC 32.1 g/dl (31.0-37.0); MEAN PLATELET VOLUME 12.2 fl (7.0-11.0); RBC 3.32 10^6/uL (3.5-6.1); RED CELL DISTRIBUTION WIDTH 15.1 % (11.5-14.5); WHITE BLOOD COUNT 8.9 10^3/ul (4.5-11.0)
--- NOTE | 2017-11-09 07:24 | CP.PCM.CON ---
History of Present Illness - History of Present Illness History of Present Illness: Please note history limited as patient was uncooperative. 82yo female PMHx HTN, Hypothyroidism, CAD s/p 4 stents, pacemaker, lymphoma, DJD presents to the ED with 1 day of fever, weakness, and a cough. Patient reports she came in as she was not feeling well. She did not take her temp at home and did not take any OTC medications to alleviate her fever/cough. This AM she complained that she had a decreased appetite, nausea, and was experiencing chills. She denied any headache, dizziness, chest pain, palpitations, SOB, cough , abd pain, vomiting, bowel/bladder complaints, pain/swelling in her legs bilaterally. Please note, patient was sitting OOB to chair resting comfortably. When her daughter came to the room, patient and her daughter decided she wanted the patient to leave against medical advice. PMHx: HTN, Hypothyroidism, CAD s/p 4 stents, pacemaker, lymphoma, DJD PSurgHx: b/l hip replacement, L carotid endarterectomy SocHx: quit tobacco 7 years ago- used to smoke 1/2ppd for years; denies EtOH/ drug use FamHx: Father [place] Meds: pls see chart ALL: NKDA PMD: Dr. Crow - last seen 2 weeks ago for routine visit Review of Systems - Review of Systems All systems: reviewed and no additional remarkable complaints except Review of Systems: as per HPI Past Patient History - Past Social History Smoking Status: Former Smoker - CARDIAC Hx Cardiac Disorders: Yes Hx Congestive Heart Failure: Yes Hx Hypertension: Yes Hx Pacemaker: Yes - PULMONARY Hx Lung Cancer: Yes - NEUROLOGICAL Hx Neurological Disorder: No - HEENT Hx HEENT Problems: No - RENAL Hx Chronic Kidney Disease: No - ENDOCRINE/METABOLIC Hx Hypothyroidism: Yes - HEMATOLOGICAL/ONCOLOGICAL Hx Blood Transfusions: No Hx Blood Transfusion Reaction: No - INTEGUMENTARY Hx Dermatological Problems: No - MUSCULOSKELETAL/RHEUMATOLOGICAL Hx Arthritis: Yes - GASTROINTESTINAL Hx Gastrointestinal Disorders: No - GENITOURINARY/GYNECOLOGICAL Hx Reproductive Disorders: No - PSYCHIATRIC Hx Depression: No Hx Emotional Abuse: No Hx Physical Abuse: No Hx Substance Use: No - SURGICAL HISTORY Hx Cardiac Catheterization: Yes Hx Joint Replacement: Yes (b/l hip) - ANESTHESIA Hx Anesthesia Reactions: No Hx Malignant Hyperthermia: No Meds Allergies/Adverse Reactions: Allergies Allergy/AdvReac Type Severity Reaction Status Date / Time No Known Allergies Allergy Verified 11/06/17 09:38 - Medications Medications: Current Medications Acetaminophen (Tylenol 325mg Tab) 650 mg PO Q6H PRN PRN Reason: fever Albuterol/Ipratropium (Duoneb 3 Mg/0.5 Mg (3 Ml) Ud) 3 ml IH [id number] [facility] Last Admin: 11/09/17 01:55 Dose: 3 ml Albuterol/Ipratropium (Duoneb 3 Mg/0.5 Mg (3 Ml) Ud) 3 ml IH Q2H PRN PRN Reason: Shortness of Breath Alprazolam (Xanax) 0.25 mg PO BID PRN; Protocol PRN Reason: Anxiety Stop: 11/13/17 15:02 Last Admin: 11/08/17 21:19 Dose: 0.25 mg Amiodarone HCl (Cordarone) 100 mg PO 0800 [facility] Last Admin: 11/08/17 10:42 Dose: 100 mg Aspirin (Aspirin Chewable) 81 mg PO DAILY [facility] Last Admin: 11/08/17 10:43 Dose: 81 mg Atorvastatin Calcium (Lipitor) 80 mg PO DIN [facility] Last Admin: 11/08/17 17:47 Dose: 80 mg Clonidine HCl (Catapres) 0.1 mg PO BID PRN PRN Reason: HTN Clopidogrel Bisulfate (Plavix) 75 mg PO 1800 [facility] Last Admin: 11/08/17 18:04 Dose: 75 mg Doxycycline Hyclate (Doryx) 100 mg PO Q12 [facility] PRN Reason: Protocol Stop: 11/17/17 22:01 Last Admin: 11/08/17 21:20 Dose: 100 mg Cefepime HCl (Maxipime 1gm) 1 gm in 100 mls @ 100 mls/hr IVPB Q8 [facility] PRN Reason: Protocol Stop: 11/17/17 22:01 Last Admin: 11/09/17 06:19 Dose: 100 mls/hr Levothyroxine Sodium (Synthroid) 44 mcg PO 0630 [facility] Last Admin: 11/09/17 06:17 Dose: 44 mcg Losartan Potassium (Cozaar) 25 mg PO DAILY [facility] Non-Formulary Medication (Nebivolol Hcl [Bystolic]) 5 mg PO DAILY [facility] Last Admin: 11/08/17 10:42 Dose: 5 mg Ondansetron HCl (Zofran Inj) 4 mg IVP Q6H PRN PRN Reason: Nausea/Vomiting Physical Exam - Constitutional Appears: Non-toxic, No Acute Distress - Head Exam Head Exam: ATRAUMATIC, NORMAL INSPECTION, NORMOCEPHALIC - Eye Exam Eye Exam: EOMI, Normal appearance, PERRL. absent: Conjunctival injection, Scleral icterus Pupil Exam: NORMAL ACCOMODATION - ENT Exam ENT Exam: Mucous Membranes Moist - Neck Exam Neck exam: Positive for: Full Rom. Negative for: Lymphadenopathy - Respiratory Exam Respiratory Exam: Decreased Breath Sounds (b/l), Rales (R sided), Rhonchi (R sided), NORMAL BREATHING PATTERN. absent: Accessory Muscle Use, Respiratory Distress - Cardiovascular Exam Cardiovascular Exam: +S1, +S2 - GI/Abdominal Exam GI & Abdominal Exam: Normal Bowel Sounds, Soft. absent: Firm, Tenderness - Rectal Exam Rectal Exam: Deferred - Extremities Exam Extremities exam: Positive for: normal capillary refill, normal inspection, pedal pulses present. Negative for: pedal edema - Neurological Exam Neurological exam: Alert, CN II-XII Intact, Oriented x3 - Psychiatric Exam Psychiatric exam: Normal Affect, Normal Mood - Skin Skin Exam: Dry, Intact, Normal Color, Warm Results - Vital Signs Recent Vital Signs: Last Vital Signs Temp 99.7 F H 11/08/17 22:28 Pulse 74 11/08/17 22:28 Resp 19 11/08/17 22:28 BP 108/60 11/08/17 22:28 Pulse Ox 91 L 11/08/17 22:28 - Labs Result Diagrams: 11/09/17 06:20 11/09/17 06:20 Labs: Laboratory Results - last 24 hr 11/09/17 06:20 WBC 8.9 RBC 3.32 L Hgb 8.7 L D Hct 27.1 L MCV 81.6 MCH 26.2 MCHC 32.1 RDW 15.1 H Plt Count 160 MPV 12.2 H Assessment & Plan - Assessment and Plan (Free Text) Assessment: 82yo female PMHx HTN, Hypothyroidism, CAD s/p 4 stents, pacemaker, lymphoma, DJD presents to the ED with 1 day of fever, weakness, and a cough. ID consulted for lung infiltrate Plan: -likely CAP -Patient spiked temp 100.6 overnight -R upper lobe consolidation noted on CXR on admission -CT chest: diffuse R upper lobe airspace consolidation containing air bronchograms in perihilar region; consolidation involving R upper lobe nodular and peripheral opacities with right lower and left midlung zones. Small b/l pleural effusions. R supraclavicular and mediastinal adenopathy raising concern of malignant neoplasm -Cefepime and Doxy Day 2 -Urine culture negative -Blood culture prelim negative x 2 -Pulm following -Continue management as per primary
[2017-11-09 07:46] LABS: ALB/GLOB RATIO 1.1 (1.1-1.8); ALBUMIN 2.8 g/dL (3.0-4.8)
[2017-11-09 08:28] VITALS: BP 99/61; PULSE 71; RESP 18; TEMP 98.3; O2SAT 95
--- NOTE | 2017-11-09 14:03 | DS ---
Copied To: Josephine Sanz MD Attending MD: Josephine Sanz MD HISTORY OF PRESENT ILLNESS: The patient is 82 years old, who was admitted with chest pain, pressure, cough, shortness of breath. The patient was on IV antibiotic, nebulizer treatment. I spoke to the patient's daughter, . I examined the patient and explained the plan for treatment. This morning, when I came to see the patient, she signed against medical advice and her daughter states that she will follow up with her PMD as she does not want to stay in the hospital anymore. Josephine Sanz MD
== END 2017-11-09 10:30 | disposition left against medical advice (07) | DRG 194 ==
LOC: ED 09:35 → ERH 12:11 → 5RNO 13:25
PROVIDERS: ADMIT Internal Medicine; ATTEND Internal Medicine
DX: J18.9 Pneumonia, unspecified organism (principal); J44.0 Chronic obstructive pulmonary disease with (acute) lower respiratory infection; C85.90 Non-Hodgkin lymphoma, unspecified, unspecified site; I11.0 Hypertensive heart disease with heart failure; I50.9 Heart failure, unspecified; I48.91 Unspecified atrial fibrillation; I25.10 Atherosclerotic heart disease of native coronary artery without angina pectoris; M15.9 Polyosteoarthritis, unspecified; E78.5 Hyperlipidemia, unspecified; E03.9 Hypothyroidism, unspecified; Z79.02 Long term (current) use of antithrombotics/antiplatelets; Z79.890 Hormone replacement therapy; Z79.899 Other long term (current) drug therapy; Z85.118 Personal history of other malignant neoplasm of bronchus and lung; Z87.891 Personal history of nicotine dependence; Z95.0 Presence of cardiac pacemaker; Z95.5 Presence of coronary angioplasty implant and graft; Z96.643 Presence of artificial hip joint, bilateral; R91.8 Other nonspecific abnormal finding of lung field; R59.0 Localized enlarged lymph nodes; R40.2412 Glasgow coma scale score 13-15, at arrival to emergency department